=== PATIENT | female | born 1945 | race Caucasian/White ===

== ENCOUNTER 2020-09-03 07:09 | Day surgery (SDC) | payer MEDICARE, BC ==
[~2020-09-03] VITALS: Ht 160 cm; Wt 62.3 kg
[~2020-09-03 07:09] MED LIST: ASPIRIN E.C. 8181 MG PO; BLOOD PRESSURE MED; CARDI-OMEGA1000 MG PO; HCTZ 25MG25 MG PO; LANOXIN0.25 MG PO; MACROBID 1100 MG/CAP PO; MEVACOR 20M20 MG/TAB PO; MULTIPLE VITAMI1 CAP PO; POTASSIUM CHLO10 ME1 PO; PREMARIN 0.60.625 MG PO; TIAZAC PO; TIAZAC240 MG PO; ZOLOFT50 MG PO
[2020-09-03] MEDS ORDERED: PRINIVIL10 MG PO (07:35)
[2020-09-03] MEDS ORDERED: PRAVACHOL 40MG40 MG PO (07:35)
[2020-09-03] MEDS ORDERED: TAZTIA240 PO (07:36)
[2020-09-03] MEDS ORDERED: CATAPRES 0.1MG0.1 MG PO (07:36)
[2020-09-03] MEDS ORDERED: GLUCOPHAGE500 MG/TAB PO (07:37)
[2020-09-03] MEDS ORDERED: K-DUR20 MEQ PO (07:37)
[2020-09-03] MEDS ORDERED: HCTZ 25MG TAB25 MG PO (07:37)
[2020-09-03] MEDS ORDERED: MAGNESIUM500 MG PO (07:38)
[2020-09-03] MEDS ORDERED: CELEXA10 MG PO (07:38)
[2020-09-03] MEDS ORDERED: ASPIRIN 81M81 MG/TA2 PO (07:39)
[2020-09-03] MEDS ORDERED: MULTIVITAMIN FO1 CAP PO (07:39)
[2020-09-03] MEDS ORDERED: ATIVAN 0.50.5 MG/TAB PO (07:40)
[2020-09-03] MEDS ORDERED: CALCIUM 600 PLU1 TAB PO (07:40)
[2020-09-03 08:02] VITALS: BP 171/61; PULSE 59; TEMP 97.5
--- NOTE | 2020-09-03 08:25 | NUR ---
The nurse called the anesthesia office and spoke with Yanely Wu CRNA regarding the patien's blood sugar of 77 which was obtained from her IV start. He verbalized understanding of the report given and has no further orders for the nurse at this time.
[2020-09-03 09:09] VITALS: BP 131/48; PULSE 55; TEMP 97.4
--- NOTE | 2020-09-03 09:09 | NUR ---
The patient arrived back to [facility] from the operating room at this time. The patient appears drowsy but does arouse easily to her name. The patient's post operative vital signs were started at this time. The patient's daughter is at her bedside at this time. Call light is within reach. The patient has mesh underwear and gauze in place. Will continue to monitor the patient.
[2020-09-03 09:24] VITALS: BP 137/49; PULSE 57
--- NOTE | 2020-09-03 09:25 | NUR ---
The patient appears more alert and agrees to try some water at this time. Vital signs appear stable. The patient denies any pain or nausea at this time. Daughter remains at her bedside. Will continue to monitor the patient.
[2020-09-03 09:39] VITALS: BP 134/45; PULSE 50
--- NOTE | 2020-09-03 09:39 | NUR ---
The patient has drank her water and appeared to tolerate it well. The patient denies wanting anything to eat here stating she is going to "eat with family" when she is discharged.
--- NOTE | 2020-09-03 09:43 | NUR ---
Discharge instructions were reviewed with the patient and her daughter at this time. They both verbalized understanding and have no questions for the nurse at this time. The patient's IV to her left hand was removed and a pressure dressing was applied to the site. The nurse instructed the patient's daughter to go pull the truck up while the nurse assists the patient to get dressed. Call light is within reach. Will continue to monitor the patient.
--- NOTE | 2020-09-03 09:52 | NUR ---
The patient was escorted out via wheelchair to a private by SUKHWINDER Cao. The patient's belongings and discharge paperwork were sent with her. The patient's daughter is present to drive her home.
== END 2020-09-03 09:52 | disposition home or self-care (01) ==
LOC: SDCO 07:09
DX: K64.1 Second degree hemorrhoids (principal); I10 Essential (primary) hypertension; E11.9 Type 2 diabetes mellitus without complications; E78.00 Pure hypercholesterolemia, unspecified; F17.210 Nicotine dependence, cigarettes, uncomplicated; I25.10 Atherosclerotic heart disease of native coronary artery without angina pectoris; I25.2 Old myocardial infarction; J44.9 Chronic obstructive pulmonary disease, unspecified; M19.90 Unspecified osteoarthritis, unspecified site; Z87.440 Personal history of urinary (tract) infections; Z79.84 Long term (current) use of oral hypoglycemic drugs; Z79.82 Long term (current) use of aspirin; Z90.710 Acquired absence of both cervix and uterus; Z95.5 Presence of coronary angioplasty implant and graft; Z20.822 Contact with and (suspected) exposure to COVID-19
CPT/HCPCS: J2405; J2704; J3010; J7030